=== PATIENT | female | born 1930 | race Caucasian/White ===

== ENCOUNTER 2017-04-24 12:50 | Emergency (ER) | payer MEDICARE, OTHER ==
[~2017-04-24] VITALS: Ht 160 cm; Wt 72.7 kg
[2017-04-24 13:00] VITALS: BP 147/68; PULSE 88; RESP 16; O2SAT 97
--- NOTE | 2017-04-24 13:22 | ED.REPORT ---
HPI-Trauma Minor / Fall Date of Service Apr 24, 2017 ED Provider: Ashok Watts DO Pt is a healthy 87 y/o female w/ a hx of dementia and memory loss presenting to the ED with her and son due to multiple falls recently. A home health nurse found that she fell once 2 days ago. The son found her once yesterday in the bathroom flat on her back and at that point wasn't experiencing any pain although she was slightly dizzy for a few seconds afterwards. She did not want to be seen in the ED at that time. Today she woke up unusually tired and decided to take a nap and woke up complaining of some pain about the coccyx prompting today's ED visit. She is unsure if she is mechanically falling or syncopizing. The patient does not remember these falls and they were unwitnessed. At time of interview she says she is very comfortable. Pt denies neck pain, abdominal pain, chest pain, headache, cough, fever, dysuria. She only takes medication for dementia/memory loss. Nursing Notes Stated Complaint: FELL/POSSIBLE CONCUSSION/LOWER BACK & COCCYX PAIN Chief Complaint: Multiple Trauma/Fall Nursing Notes Reviewed: Yes Allergies: Coded Allergies: No Known Allergies (Unverified , 04/24/17) General Time Seen by MD: 13:08 Chief Complaint Other (falls) Hx Obtained From: Patient Arrived By: Walk-in Onset Occurred: 2 days ago Symptom Duration: Intermittent Location: Back Quality: Painful Severity: Current: No pain currently Severity: Maximum: Moderate Recent Healthcare: No recent hospitalization Similar Sx Previous: No Past Medical History Past Medical History Memory loss otherwise denies Past Surgical History None reported Social History Other Social History: Ambulatory Status Independent Review of Systems Constitutional: Denies: Chills, Fever Respiratory: Denies: Non-productive cough, Shortness of breath Musculoskeletal: Reports: Lumbar pain Neurologic: Reports: Dizziness, Denies: Headache Complete sys rev & neg: except as marked. Cardiovascular: Denies: Chest pain GI: Denies: Abdominal pain Female: Denies: Dysuria Physical Exam Initial Vital Signs Vital Signs (First) Date Time Temp Pulse Resp B/P Pulse Ox O2 Delivery O2 Flow Rate FiO2 04/24/17 13:00 36.6 88 16 147/68 97 Room Air Initial VS: Reviewed, Vital signs normal General/Constitutional: Awake, Alert, No acute distress, Well appearing, Cooperative, Not toxic appearing Mildly confused Neck: Atraumatic, Supple, No meningismus, Full range of motion, No swelling, Non-tender, No midline vertebral tend, No masses, No crepitus Head / Eyes: Atraumatic, Normocephalic, PERRL, EOMI ENT: Atraumatic, Airway patent, Mucous membranes moist Respiratory / Chest: Atraumatic, Breath sounds NL, Breath sounds = bilat, No respiratory distress, No rales, No rhonchi, No wheezing, No retractions, No stridor, No chest tenderness, No chest wall deformity, No crepitus Cardiovascular: Heart rate NL, Regular rhythm, Heart sounds NL, No gallop, No murmurs, No rubs, Cap refill not delayed, Peripheral circulation NL, Pulses = bilaterally Abdomen: Atraumatic, Soft, Non-tender, No guarding, No rebound, No distention, No palpable mass Back: Atraumatic, Full range of motion, Painless range of motion, Non-tender, No midline vertebral tend Upper Extremity / MS: Atraumatic, Full range of motion, No swelling, Non-tender , No erythema, No deformity, Neurologic intact, Vascular intact Lower Extremity / Pelvis / MS: Atraumatic, Inspection NL, Full range of motion , No swelling, Non-tender, No deformity, Neurologic intact, Vascular intact, No ligamentous injury, Tendon function NL Skin: Atraumatic, Color NL, No rash, Warm, Dry, Intact Neurologic: Oriented X3, Speech NL, No motor deficits, No sensory deficits, CN II - XII intact, Cerebellar NL, Memory NL Mildly confused Psychiatric: Affect NL, Mood NL Interpretation & Diagnostics Lab Results Interpretation Result Diagram: 04/24/17 1445 04/24/17 1445 Test 04/24/17 14:45 04/24/17 15:40 White Blood Count 13.8th/mm3 (3.8-10.1) Red Blood Count 4.52mil/mm3 (3.90-5.20) Hemoglobin 13.8g/dL (12.0-15.6) Hematocrit 41.5% (35.0-46.0) Mean Corpuscular Volume 91.8fL (81-100) Mean Corpuscular Hemoglobin 30.5pg (27.0-35.0) Mean Corpuscular Hemoglobin Concent 33.3% (32.0-37.0) Red Cell Distribution Width 15.0% (12.3-15.4) Platelet Count 424bil/L (150-400) Neutrophils (%) (Auto) 71.1% (40-74) Lymphocytes (%) (Auto) 18.2% (14-46) Monocytes (%) (Auto) 6.7% (4-12) Eosinophils (%) (Auto) 3.1% (0-5) Basophils (%) (Auto) 0.2% (0-3) Sodium Level 136mEq/L (134-144) Potassium Level 3.6mEq/L (3.5-5.2) Chloride Level 97mEq/L (97-108) Carbon Dioxide Level 24mmol/L (18-29) Blood Urea Nitrogen 25mg/dL (8-27) Creatinine 0.51mg/dL (0.57-1.00) Estimat Glomerular Filtration Rate 163mL/min (>59) Glucose Level 104mg/dL (60-99) Calcium Level 9.3mg/dL (8.5-10.1) Total Bilirubin 0.7mg/dL (0.0-1.2) Aspartate Amino Transf (AST/SGOT) 46U/L (0-50) Alanine Aminotransferase (ALT/SGPT) 32U/L (0-32) Alkaline Phosphatase 84U/L (25-165) Troponin T < 0.010ug/L (0.0-0.011) Total Protein 7.2g/dL (6.4-8.4) Albumin 4.0g/dL (3.4-5.0) Hold [place] Top Tube Received (Received) Urine Color Dark yellow (YELLOW) Urine Appearance Clear (CLEAR,HAZY) Urine pH 6.0 (5.0-8.0) Urine Specific [place] 1.015 (1.003-1.035) Urine Protein Tracemg/dL (NEG,TRACE) Urine Glucose (UA) Negativemg/dL (NEGATIVE) Urine Ketones Tracemg/dL (NEGATIVE) Urine Occult Blood Negative (NEGATIVE) Urine Nitrite Negative (NEGATIVE) Urine Bilirubin Negative (NEGATIVE) Urine Urobilinogen Normalmg/dL (NORMAL) Urine Leukocyte Esterase Negative (NEGATIVE) Urine RBC 0-2/hpf (0-2) Urine WBC 0-5/hpf (0-5) Urine Epithelial Cells Occasional/hpf (NONE-MOD) Urine Crystals None seen (NONE SEEN) Urine Bacteria Few/hpf (NONE-FEW) Urine Hyaline Casts None/lpf (NONE) Urine Granular Casts None seen (NONE SEEN) Urine Waxy Casts None seen (NONE SEEN) Urine Red Blood Cell Casts None seen (NONE SEEN) Urine White Blood Cell Casts None seen (NONE SEEN) Urine Mucus Present (None Seen) Urine Trichomonas None seen (NONE SEEN) Urine Yeast None (NONE SEEN) Urinalysis Comment None Urine Culture Reflexed Not indicated ECG Interpretation ECG Interpretation: Sinus rhythm rate 78 RBBB Time: 13:50 Interpreted by: ED physician Normal ECG Interpretation: No acute ischemic changes X-Ray Chest Interpretation Chest Xray Interpretation: IMPRESSION: No acute disease is seen in the upright portable chest Dictated by: Catrachito Casillas M.D. on 04/24/2017 at 14:05 Approved by: Catrachito Casillas M.D. on 04/24/2017 at 14:06 View: Portable, 1 view Interpretation / Wet Read by: Interpret - Radiologist CT Head Interpretation IMPRESSION: No acute intracranial abnormality. Moderate atrophy and microvascular ischemic change from aging. Dictated by: Catrachito Casillas M.D. on 04/24/2017 at 14:17 Approved by: Catrachito Casillas M.D. on 04/24/2017 at 14:21 Study: Head CT no contrast Interpretation / Wet Read by: Interpret - Radiologist Re-Eval/Medical Decision Med Decision/Clinical Course For unknown reason. Discussed with the family shared decision making, offered and recommended a observational admit for further delineation of the cause. The and son are at bedside and declined admission, they wish to take the patient home. Return and follow-up precautions given. Source of Hx: Old records Re-Evaluation/Progress : Time of Eval: 16:56 Re-Evaluation/Progress Note: Pt rechecked. Discussed admission vs discharge. The patient and her knowledgeable son would like for her to be discharged. F/U instructions and RTER warnings given. All questions addressed. Counseled Regarding: Diagnosis, Lab results, Need for follow-up, When/why to return to ED Discharge & Departure Impression: Primary Impression: Weakness Additional Impression: Falls Encounter type: initial encounter Qualified Code: W19.XXXA - Unspecified fall, initial encounter Disposition: Home Discharge Condition All VS Reviewed: Yes Condition: Stable Patient Instructions: Fall Prevention for Older Adults (ED) Additional Instructions: Follow-up with your primary care doctor in the next few days for reevaluation. Stay hydrated. Return to the ER as needed if worse. Referrals: Pratibha Norton MD (PCP) Scribe Attestation Portions of this note were transcribed by Sudarshan Lopez. I, Dr. Watts personally performed the history, physical exam and medical decision-making; I reviewed and confirmed the accuracy of the information in the transcribed note. copies to: Pratibha Norton MD, Timothy S DO Apr 24, 2017 13:22 SUDARSHAN LOPEZ Apr 24, 2017 13:29
[2017-04-24] MEDS ORDERED: 0.9% Sodium Chloride 1,000 ML IV ONE (13:31)
--- NOTE | 2017-04-24 14:08 | DRSVH ---
PROCEDURE: X-RAY CHEST ONE VIEW, PORTABLE ([id number]) INDICATIONS: weakness, falls TECHNIQUE: One view of the chest was acquired. COMPARISON: [facility], , CHEST 1VW (PORTABLE), 03/31/2009, 15:50. FINDINGS: Surgical changes and devices: None. Lungs and pleura: No pleural effusions or pneumothorax. Lungs are clear. Mediastinum: Mediastinal contours appear normal. Heart size is normal. Bones and chest wall: No suspicious bony lesions. Overlying soft tissues appear unremarkable. IMPRESSION: No acute disease is seen in the upright portable chest Dictated by: Catrachito Casillas M.D. on 04/24/2017 at 14:05 Approved by: Catrachito Casillas M.D. on 04/24/2017 at 14:06
--- NOTE | 2017-04-24 14:23 | DRSVH ---
PROCEDURE: CT BRAIN WITHOUT CONTRAST ([id number]) INDICATIONS: falls TECHNIQUE: Noncontrast 4.5 mm thick angled axial sections acquired from the foramen magnum to the vertex, with c oronal reformats. COMPARISON: None. FINDINGS: Image quality: Good CSF spaces: Basal cisterns are patent. No extra-axial fluid collections. The ventricles are symmet reji in size and shape. Brain: No intracranial bleeds or masses. A 7 mm calcification adjacent to the dura in the sagittal s inus on the left is likely an old meningioma. No mass effect is seen. There is cerebral volume loss f or age, with resultant ventricular and sulcal prominence. There are periventricular and deep white m atter chronic small vessel ischemic changes. There is intracranial internal carotid artery atheroscl erosis. Skull and face: Calvarium and visualized facial bones appear intact, without suspicious lesions. Sinuses: Visualized sinuses and mastoids are clear. IMPRESSION: No acute intracranial abnormality. Moderate atrophy and microvascular ischemic change fro m aging. Dictated by: Catrachito Casillas M.D. on 04/24/2017 at 14:17 Approved by: Catrachito Casillas M.D. on 04/24/2017 at 14:21
--- NOTE | 2017-04-24 14:43 | NUR ---
Evaluation completed. Please go to "Notes" then click on "Assessments and Notes" (bottom left corner of screen). Then select appropriate discipline tab on top of screen.
[2017-04-24 14:56] LABS: BASOPHILS % (AUTO) 0.2 % (0-3); EOSINOPHILS % (AUTO) 3.1 % (0-5); MONOCYTES % (AUTO) 6.7 % (4-12); Mean Corpuscular Hemoglobin 30.5 pg (27.0-35.0); Mean Corpuscular Volume 91.8 fL (81-100); NEUTROPHILS % (AUTO) 71.1 % (40-74); Platelet Count 424 bil/L (150-400)
[2017-04-24 15:26] LABS: TROPONIN T < 0.010 ug/L (0.0-0.011)
[2017-04-24 16:07] LABS: APPEARANCE,URINE CLEAR (CLEAR,HAZY); COLOR,URINE DARK YELLOW (YELLOW); OCCULT BLOOD,URINE NEGATIVE (NEGATIVE); UROBILINOGEN,URINE NORMAL (NORMAL)
[2017-04-24 17:25] VITALS: BP 184/87; PULSE 90; RESP 16; O2SAT 97
[2017-05-03] MEDS ORDERED: TIMO5DRO5 BOTH_EYES (17:45)
[2017-05-03] MEDS ORDERED: LATA2.5D6 BOTH_EYES (17:45)
[2017-05-03] MEDS ORDERED: DONE10TA42 PO (17:45)
[2017-05-03] MEDS ORDERED: LIDOCAINE TRANSDERM (17:45)
[2017-05-03] MEDS ORDERED: MULT-666 PO (17:46)
[2017-05-03] MEDS ORDERED: CA C1TAB86 PO (17:46)
== END 2017-04-24 16:55 | disposition home or self-care (01) ==
LOC: SED 12:50
DX: R53.1 Weakness (principal); M53.3 Sacrococcygeal disorders, not elsewhere classified; M54.9 Dorsalgia, unspecified; W19.XXXA Unspecified fall, initial encounter; Y93.9 Activity, unspecified; Y92.009 Unspecified place in unspecified non-institutional (private) residence as the place of occurrence of the external cause; Y99.8 Other external cause status; Z91.81 History of falling
CPT/HCPCS: 36415; 70450; 71010; 80053; 81000; 84484; 85025; 92610; 93005; 96360; 99285; J7030

== ENCOUNTER 2017-04-30 20:09 | Emergency (ER) | payer MEDICARE, OTHER ==
[~2017-04-30] VITALS: Ht 160 cm; Wt 71.8 kg
[2017-04-30 20:21] VITALS: BP 167/91; PULSE 75; RESP 16; O2SAT 96
--- NOTE | 2017-04-30 22:22 | ED.REPORT ---
HPI-Back Pain 40 and Over Date of Service Apr 30, 2017 ED Provider: Marline Holley MD Pt is an 87 year old female with a hx of dementia and spinal stenosis presenting to the ED complaining of back pain onset 1 week ago. They were seen here 1 week ago for similar symptoms. Her son reports that she has had 2 falls last weekend on Tuesday and Tuesday. She was found by her after an unknown downtime. She did not want to go to the ER, but the next day she began having some leg pain so she did go into the ER, no back pain at that time. 4 days ago, the pt began to have back pain, has had increasing severity. Her son denies any new incontinence, weakness or numbness The pt and her are currently working on moving into an Assisted Living facility. Nursing Notes Stated Complaint: LUMBAR BACK PAIN Chief Complaint: Back Pain or Injury Nursing Notes Reviewed: Yes Allergies: Coded Allergies: No Known Allergies (Unverified , 04/30/17) Scheduled Lidocaine (Lidoderm) 700 Mg Adh..patch 1 PATCH TP UD Scheduled PRN Tramadol (Tramadol) 50 Mg Tablet 25 MG PO HS PRN PRN For Pain General Time Seen by MD: 22:15 Chief Complaint Back pain Hx Obtained From: Son Arrived By: Ambulance Sudden in Onset?: No Onset Occurred: 1 week ago Symptom Duration: Since onset Caused by: Fall Quality: Painful Severity: Current: Moderate Severity: Maximum: Severe Recent Healthcare: No recent hospitalization, Recent doctor visit Similar Sx Previous: Yes Past Medical History Past Medical History Dementia Spinal stenosis Past Surgical History None reported Social History Other Social History: Ambulatory Status Independent Review of Systems Unable to Obtain ROS Mental status Physical Exam Initial Vital Signs Vital Signs (First) Date Time Temp Pulse Resp B/P Pulse Ox O2 Delivery O2 Flow Rate FiO2 04/30/17 20:21 36.7 75 16 167/91 96 Room Air Initial VS: Reviewed Head / Eyes: Atraumatic, Normocephalic, PERRL ENT: Mucous membranes moist, Conjunctiva normal, No scleral icterus Extremities: Vascular intact, Neuro intact, No swelling, No tenderness Skin: Warm, Dry, No cyanosis General/Constitutional: Awake, No acute distress Demented Respiratory / Chest: Breath sounds NL, Breath sounds = bilat, No respiratory distress, No rales, No rhonchi, No wheezing Cardiovascular: Heart rate NL, Regular rhythm, Heart sounds NL, Peripheral circulation NL Heart Sounds / Murmur: Positive: Systolic murmur present.. Abdomen: Atraumatic, Soft, Non-tender Back: Atraumatic, Inspection NL, Non-tender Neurologic: Speech NL, No motor deficits, No sensory deficits, CN II - XII intact Strength and sensation are intact in both lower extremities Interpretation & Diagnostics ECG Interpretation ECG Interpretation: RBBB. Unchanged from prior. Time: 23:33 Interpreted by: ED physician Normal ECG Interpretation: Normal rate (74), Normal sinus rhythm X-Ray Chest Interpretation View: Portable Interpretation / Wet Read by: Wet read ED physician X-Ray Interpretation Study Performed: Pelvis, lumbar spine X-Ray Ordered: Pelvis Interpretation / Wet Read by: Wet read ED physician Interpretation: No fracture/dislocation (degenerative) Re-Eval/Medical Decision Med Decision/Clinical Course 87-year-old female with back pain developing several days after a fall. My physical exam is normal but limited by her dementia. X-ray of her back and pelvis were performed, she certainly has degenerative changes but no acute fractures were appreciated. While she was in the emergency department she complained of some lower chest pain, she has been in bed extensively today as well as in the hospital bed for some time, I do not suspect a pulmonary embolus or dissection or coronary event given the mild nature of her pain and that it developed after a few hours in the emergency department should not been complaining of this before now. A chest x-ray and EKG were performed which showed no acute processes. Her respiratory status remained name normal and she had No tachycardia. Re-Evaluation/Progress #1: Time of Eval: 22:41 Patient Status: Condition improved Re-Evaluation/Progress Note: Discussed plan for x ray. Re-Evaluation/Progress #2: Time of Eval: 00:04 Patient Status: Condition improved Re-Evaluation/Progress Note: Patient reported chest pain while having her x-rays done, she reported to nursing that when she took a deep breath she had bilateral lower chest/upper abdominal pain. Her vital signs remained normal. She has no signs of DVT do not suspect this is source of her symptoms. A chest x-ray was obtained as well as an EKG her EKG was normal. Counseled Regarding: Diagnosis, Lab results, Need for follow-up, When/why to return to ED Discharge & Departure Disposition: Home Discharge Condition All VS Reviewed: Yes Condition: Improved Additional Instructions: Continue giving Tylenol as directed for her pain, and use the numbing patches. They go on for 12 hours at a time, and then take it off for 12 hours. If she is using a heating pad, make sure she is being monitored so that she does not accidentally leave it on for too long and burn herself. Don't use the heating pad right after or wheile using the numbing patch. He was given a couple of doses of tramadol to try if these measures are not helping her mother's pain. Be cautious using these medications as they may make her more likely to fall or more confused. Make sure you return to the ER for any new or worsening symptoms such as numbness, weakness, headache, fever, chills, shortness of breath, nausea or vomiting. Referrals: Pratibha Norton MD (PCP) Scribe Attestation Portions of this note were transcribed by Bree Guerra. I, Dr. Holley personally performed the history, physical exam and medical decision-making; I reviewed and confirmed the accuracy of the information in the transcribed note. Signed by: Chon Lion, 04/30/2017. copies to: Pratibha Norton MD, Sarah C MD Apr 30, 2017 22:22 BREE GUERRA Apr 30, 2017 22:36
[2017-04-30 22:31] VITALS: BP 152/65; PULSE 75; RESP 18; O2SAT 94
[2017-04-30] MEDS ORDERED: Lidocaine Topical 5% Patch TOPICAL SCH (23:00)
[2017-04-30] MEDS ORDERED: Lidocaine Topical 5% Patch TOPICAL ONE (23:52)
[2017-05-01] MEDS ORDERED: LIDO700A10 TP (00:59)
[2017-05-01] MEDS ORDERED: TRAM50TA2 PO (00:59)
[2017-05-01 02:07] VITALS: BP 151/76; PULSE 75; RESP 21; O2SAT 95
--- NOTE | 2017-05-01 07:30 | DRSVH ---
PROCEDURE: X-RAY LUMBAR SPINE, 2 OR 3 VIEW INDICATIONS: Low back pain TECHNIQUE: 3 views of the lumbar spine were acquired. COMPAR[facility]: [facility], [place], SPINE LUMB MIN 4VW, 11/21/2014, 14:06. FINDINGS: Bones: 5 [id number] vertebrae are present. There is mild grade 1 anterolisthesis of L4 on L5, a s before. There is otherwise normal bony alignment. Multilevel disc space narrowing and endplate oste ophyte formation. Multilevel facet hypertrophy. No vertebral body compression fractures. No suspicio us bony lesions. Soft tissues: Overlying bowel gas pattern is normal. No suspicious soft tissue calcifications. IMPRESSION: Multilevel degenerative disc and facet disease. No acute fracture. No osseous lesion. If clinical suspicion and/or symptoms persist, further assessment with repeat plainfilms, or advanced im aging (e.g., CT, MRI, or bone scan) may be helpful for further assessment. Dictated by: Donna Watson M.D. on 05/01/2017 at 7:28 Approved by: Donna Watson M.D. on 05/01/2017 at 7:29
--- NOTE | 2017-05-01 07:31 | DRSVH ---
PROCEDURE: X-RAY PELVIS, ONE OR TWO VIEWS ([id number]) INDICATIONS: Low back pain TECHNIQUE: 1 view(s) of the pelvis acquired. COMPARISON: None. FINDINGS: Bones: No fractures or dislocations. No suspicious bony lesions. Periarticular osteophyte formatio n of the bilateral hip joints. Soft tissues: Visualized bowel gas pattern is normal. Rounded calcification projects over the mid pe lvis. IMPRESSION: 1. Uterine fibroid. 2. Bilateral hip osteoarthritis. 3. No acute fracture. No osseous lesion. If clinical suspicion and/or symptoms persist, further asses sment with repeat plainfilms, or advanced imaging (e.g., CT, MRI, or bone scan) may be helpful for fu rther assessment. Dictated by: Donna Watson M.D. on 05/01/2017 at 7:29 Approved by: Donna Watson M.D. on 05/01/2017 at 7:30
--- NOTE | 2017-05-01 07:33 | DRSVH ---
PROCEDURE: X-RAY CHEST ONE VIEW, PORTABLE ([id number]) INDICATIONS: chest pain TECHNIQUE: One view of the chest was acquired. COMPARISON: [facility], CR, XR CHEST 1VW (PORTABLE), 04/24/2017, 13:49. FINDINGS: Surgical changes and devices: None. Lungs and pleura: No pleural effusions or pneumothorax. Lungs are clear. Mediastinum: Mediastinal contours appear normal. Heart size is normal. Bones and chest wall: No suspicious bony lesions. Overlying soft tissues appear unremarkable. IMPRESSION: No acute process. Dictated by: Donna Watson M.D. on 05/01/2017 at 7:31 Approved by: Donna Watson M.D. on 05/01/2017 at 7:31
[2017-05-03] MEDS ORDERED: TIMO5DRO5 BOTH_EYES (17:45)
[2017-05-03] MEDS ORDERED: LIDOCAINE TRANSDERM (17:45)
[2017-05-03] MEDS ORDERED: DONE10TA42 PO (17:45)
[2017-05-03] MEDS ORDERED: LATA2.5D6 BOTH_EYES (17:45)
[2017-05-03] MEDS ORDERED: MULT-666 PO (17:46)
[2017-05-03] MEDS ORDERED: CA C1TAB86 PO (17:46)
[2017-05-06] MEDS ORDERED: SENN-133 PO (11:25)
[2017-05-06] MEDS ORDERED: LISI-610 PO (11:25)
[2017-05-06] MEDS ORDERED: OXYC1TAB24 PO (11:25)
[2017-05-06] MEDS ORDERED: AMLO5TAB2 PO (11:25)
[2017-05-06] MEDS ORDERED: ACET325T51 PO (11:27)
== END 2017-05-01 01:39 | disposition home or self-care (01) ==
LOC: SED 20:09
DX: M54.5 Low back pain (principal); R07.9 Chest pain, unspecified; F03.90 Unspecified dementia, unspecified severity, without behavioral disturbance, psychotic disturbance, mood disturbance, and anxiety; W19.XXXA Unspecified fall, initial encounter; Y93.9 Activity, unspecified; Y92.9 Unspecified place or not applicable; Y99.9 Unspecified external cause status; Z91.81 History of falling